=== PATIENT | female | born 1995 | race Caucasian/White ===

== ENCOUNTER → 2016-09-09 | Outpatient (CLI) | payer BC ==
[~2016-09-09] MED LIST: BACTRIM DS 8001 TA1 PO; CIPROFLOXACIN500 MG PO; HYDROCODONE BIT1 T11 PO; ZOFRAN ODT4 MG SL
[2016-09-10 19:10] LABS: HEPATITIS B SURFACE AB 006395 Non Reactive (.)
[2016-09-10 20:13] LABS: VARICELLA-ZOSTER IGG 096206 >4000 index (Immune >165)
== END | disposition home or self-care (01) ==
LOC: LAB 10:53
PROVIDERS: Family Medicine
DX: Z02.0 Encounter for examination for admission to educational institution (principal)

== ENCOUNTER → 2016-09-30 | Outpatient (CLI) | payer BC | END | disposition home or self-care (01) | LOC: LAB 09:20 | DX: Z02.0 Encounter for examination for admission to educational institution (principal) ==